=== PATIENT | male | born 1975 | race Caucasian/White ===

== ENCOUNTER 2018-12-15 09:28 | Outpatient (CLI) | payer OTHER ==
--- NOTE | 2018-12-15 09:58 | RAD ---
EXAM: 3 views of the right second toe HISTORY: Right second toe pain for 8 weeks COMPARISON: None FINDINGS: There is no evidence of acute fracture or dislocation. No soft tissue swelling is seen. No degenerative changes are present. No radiopaque foreign body is seen. IMPRESSION: No evidence of acute osseous abnormality.
== END 2018-12-15 09:29 | disposition home or self-care (01) ==
LOC: BICRAD 09:28
PROVIDERS: ATTEND Podiatrist
DX: M79.674 Pain in right toe(s) (principal)

== ENCOUNTER 2020-09-16 11:10 | Inpatient (IN) | payer OTHER ==
[2020-09-16 17:34] VITALS: BMI 25.9
[2020-09-19 11:28] VITALS: BP 139/84; TEMP 97.9
== END 2020-09-19 15:36 | disposition home or self-care (01) | DRG 177 ==
LOC: ERS 11:10 → ERHOLD 12:57 → IMCU/EMU 16:08 → T4-B 09-17 18:35
PROVIDERS: ADMIT Internal Medicine Critical Care Medicine; ATTEND Internal Medicine Critical Care Medicine
PROC: 8E0ZXY6 Isolation (ICD-10-PCS; principal; 2020-09-16)
DX: U07.1 COVID-19 (principal); J12.82 Pneumonia due to coronavirus disease 2019; R19.7 Diarrhea, unspecified; E86.0 Dehydration; I10 Essential (primary) hypertension; E87.6 Hypokalemia; Z98.52 Vasectomy status; Z79.899 Other long term (current) drug therapy
CPT/HCPCS: 36415; 71045; 71275; 80053; 82550; 83690; 83880; 84132; 84484; 85025; 85379; 86140; 87324; 87328; 87329; 87449; 93005; 96374; J1100; J2930; J7050; Q9967

== ENCOUNTER 2021-04-26 13:31 | Inpatient (IN) | payer OTHER ==
[~2021-04-26 13:31] MED LIST: Iopamidol 370 76% 100 ML VIAL ONE; Iopamidol 370 76% 50 ML VIAL FS ONE
[2021-04-26] MEDS ORDERED: Nitroglycerin 2% Ointment 1 INCH/1 GM Packet ONE ×2 (14:05→14:07)
[2021-04-26 14:56] LABS: CKMB 22.2 ng/mL (0-6.6)
[2021-04-26] MEDS ORDERED: Verapamil 5 MG/2 ML VIAL ONE (15:02)
[2021-04-26] MEDS ORDERED: Nitroglycerin 100MG/250ML BOT 250 ML ONE (15:02)
[2021-04-26] MEDS ORDERED: Heparin 10,000 UNITS/ 10 ML VIAL ONE (15:02)
[2021-04-26] MEDS ORDERED: Fentanyl 250 MCG/5 ML VIAL ONE (15:34)
[2021-04-26] MEDS ORDERED: Ondansetron PF 4 MG/2 ML Vial ONE (15:49)
[2021-04-26] MEDS ORDERED: Atropine Sulfate 1 mg/10 ml Syringe ONE (15:49)
[2021-04-26] MEDS ORDERED: Adenosine 6 MG/2 ML VIAL ONE (15:59)
[2021-04-26] MEDS ORDERED: Midazolam HCl 2 mg/2 ml Vial ONE (15:59)
[2021-04-26] MEDS ORDERED: Clopidogrel Bisulfate 300 MG TAB ONE (16:24)
[2021-04-26] MEDS ORDERED: TICAGRELOR 90 MG TABLET ONE (16:32)
[2021-04-26] MEDS ORDERED: Sodium Chloride 0.9% 1,000 ML IV SCH (16:45)
[2021-04-26 17:36] VITALS: BMI 28.4
[2021-04-26] MEDS ORDERED: FLU VACC QS2021-22(6MOS UP)/PF 60 MCG/0.5 ML SYRINGE IM ONE (17:45)
[2021-04-26] MEDS: TICAGRELOR 90 MG TABLET PO SCH (20:00)
[2021-04-26 20:40] LABS: Troponin I 3.698 ng/mL (< 0.028)
[2021-04-26] MEDS ORDERED: HYDROcodone/Acetaminophen 5/325 mg Tablet PO PRN (21:04)
[2021-04-27 04:09] LABS: #Eosinphils 0.1 thou/uL (0.0-0.7); #Lymphocytes 1.8 thou/uL (1.20-3.40); #Monocytes 0.9 thou/uL (0.11-0.59); #Neutrophils 4.9 thou/uL (1.40-6.50); %Basophils 0.5 % (0.0-1.0); %Eosinophils 1.2 % (0.0-10.0); %Lymphocytes 23.3 % (21.0-51.0); %Monocytes 11.1 % (0.0-10.0); %Neutrophils 63.9 % (42.0-75.0); Hemoglobin 12.9 g/dL (14.0-18.0); Mean Corpuscular HGB CONC 33.1 g/dL (32.0-36.0); Mean Corpuscular Hemoglobin 30.9 pg (27.0-31.0); Mean Corpuscular Volume 93.4 fL (78.0-98.0); Mean Platelet Volume 8.1 fL (7.4-10.4); Platelet Count 233 thou/uL (130-400); Red Blood Cell (RBC) Count 4.16 mill/uL (4.70-6.10); White Blood Cell (WBC) Count 7.7 thou/uL (4.8-10.8)
[2021-04-27 04:35] LABS: ALT (SGPT) 42 U/L (8-55); AST (SGOT) 99 U/L (5-34); Albumin 3.5 g/dL (3.5-5.0); Alkaline Phosphatase 69 U/L (40-110); Anion Gap 10 mmol/L (10-20); BUN (Urea Nitrogen) 22 mg/dL (8.9-20.6); Bilirubin, Total 0.7 mg/dL (0.2-1.2); Calc. Creatinine Clearance 116 mL/min (70-130); Calcium 8.9 mg/dL (7.8-10.44); Carbon Dioxide 27 mmol/L (22-29); Cardiac Risk 4.2 (Less than 4.5); Chloride 107 mmol/L (98-107); Cholesterol 142 mg/dl (< 200 Desired); Globulin 2.3 g/dL (2.4-3.5); Glucose 101 mg/dL (70-105); HDL Cholesterol 34 mg/dL (>60 Neg Risk); LDL Cholesterol, Calculated 67 mg/dL; Potassium 4.1 mmol/L (3.5-5.1); Protein, Total 5.8 g/dL (6.0-8.3); Sodium 140 mmol/L (136-145); Triglycerides 204 mg/dL (Less than 150)
[2021-04-27 04:51] LABS: Troponin I 9.038 ng/mL (< 0.028)
[2021-04-27] MEDS ORDERED: Lisinopril 2.5 MG TAB PO SCH (09:00)
[2021-04-27] MEDS: Aspirin 81 mg Enteric Coated Tablet PO SCH (09:51)
[2021-04-27] MEDS: TICAGRELOR 90 MG TABLET PO SCH ×2 (09:52→22:57)
[2021-04-27] MEDS ORDERED: Atorvastatin Calcium 10 MG TAB PO SCH ×2 (21:00)
[2021-04-27] MEDS ORDERED: HYDROcodone/Acetaminophen 5/325 mg Tablet PO SCH (22:00)
[2021-04-28] MEDS ORDERED: Lisinopril 5 MG TAB PO SCH (09:00)
[2021-04-28] MEDS: TICAGRELOR 90 MG TABLET PO SCH (09:26)
[2021-04-28] MEDS: Aspirin 81 mg Enteric Coated Tablet PO SCH (09:27)
[2021-04-28 11:54] VITALS: BP 127/83; TEMP 98.5
[2021-04-29] MEDS ORDERED: Losartan 25 MG TAB PO SCH (09:00)
== END 2021-04-28 13:08 | disposition home or self-care (01) | DRG 247 ==
LOC: ERS 13:31 → CCL 15:23 → CCU 16:10 → 2NO 04-27 15:58
PROVIDERS: ADMIT Internal Medicine Cardiovascular Disease; ATTEND Internal Medicine Cardiovascular Disease
PROC: 027034Z Dilation of Coronary Artery, One Artery with Drug-eluting Intraluminal Device, Percutaneous Approach (ICD-10-PCS; principal; 2021-04-26)
PROC: 4A023N7 Measurement of Cardiac Sampling and Pressure, Left Heart, Percutaneous Approach (ICD-10-PCS; 2021-04-26)
PROC: B2111ZZ Fluoroscopy of Multiple Coronary Arteries using Low Osmolar Contrast (ICD-10-PCS; 2021-04-26)
DX: I21.4 Non-ST elevation (NSTEMI) myocardial infarction (principal); Z20.822 Contact with and (suspected) exposure to COVID-19; I25.10 Atherosclerotic heart disease of native coronary artery without angina pectoris; I10 Essential (primary) hypertension; E78.5 Hyperlipidemia, unspecified; R00.1 Bradycardia, unspecified; I77.1 Stricture of artery; Z79.899 Other long term (current) drug therapy; Z98.52 Vasectomy status; Z98.890 Other specified postprocedural states
CPT/HCPCS: 36415; 80053; 80061; 82553; 84484; 85025; 85347; 92928; 93005; 93010; 93306; 93458; 93798; 93926; 94760; 99152; C1769; C1874; C9600; J0153; J0461; J1644; J2250; J2405; J3010; J7050; Q9967

== ENCOUNTER 2022-01-15 15:42 | Outpatient (CLI) | payer OTHER ==
[2022-01-15 16:07] LABS: #Basophils 0.1 10x3/uL (0.0-0.2); #Eosinphils 0.2 10x3/uL (0.0-0.5); #Monocytes 0.8 10x3/uL (0.0-1.1); #Neutrophils 5.3 10x3/uL (1.5-8.4); %Basophils 0.7 % (0.0-2.0); %Eosinophils 1.8 % (0.0-6.0); %Lymphocytes 25.4 % (18.0-47.0); %Monocytes 9.7 % (0.0-10.0); Hemoglobin 16.5 g/dL (13.5-17.5); Mean Corpuscular Hemoglobin 31.4 pg (27.0-33.0); Mean Corpuscular Volume 89.7 fl (81.2-95.1); Mean Platelet Volume 9.6 fl (7.4-10.4); Platelet Count 307 10x3/uL (150-450); RBC Distribution Width 12.2 % (11.5-14.5); Red Blood Cell (RBC) Count 5.26 10x6/uL (4.32-5.72); White Blood Cell (WBC) Count 8.5 10x3/uL (3.5-10.5)
[2022-01-15 16:27] LABS: ALT (SGPT) 26 U/L (8-55); AST (SGOT) 24 U/L (5-34); Albumin 4.5 g/dL (3.5-5.0); Alkaline Phosphatase 64 U/L (40-110); Anion Gap 13 mmol/L (10-20); BUN (Urea Nitrogen) 25 mg/dL (8.9-20.6); Bilirubin, Total 1.3 mg/dL (0.2-1.2); Calc. Creatinine Clearance 0 mL/min (70-130); Calcium 9.9 mg/dL (7.8-10.44); Carbon Dioxide 28 mmol/L (22-29); Chloride 105 mmol/L (98-107); Estimated GFR 73; Globulin 2.8 g/dL (2.4-3.5); Glucose 77 mg/dL (70-105); Potassium 3.9 mmol/L (3.5-5.1); Protein, Total 7.3 g/dL (6.0-8.3); Sodium 142 mmol/L (136-145)
== END 2022-01-15 15:43 | disposition home or self-care (01) ==
LOC: LABBT 15:42
PROVIDERS: ATTEND Internal Medicine Cardiovascular Disease
DX: Z01.812 Encounter for preprocedural laboratory examination (principal); I25.10 Atherosclerotic heart disease of native coronary artery without angina pectoris
CPT/HCPCS: 80053; 85025